=== PATIENT | female | born 1945 | race Caucasian/White ===

== ENCOUNTER → 2018-11-13 | Outpatient (REF) | payer MEDICARE, OTHER ==
[~2018-11-13] MED LIST: BL ASPIRIN325 MG PO; CAL MAG ZINC; FISH OIL600 MG OR; JANTOVEN1 MG PO; JANUMET1 TAB PO; LEVOTHYROXIN50 MCG PO; LIPITOR20 M1 PO; LISINOPRIL2.5 MG PO; METFORMIN500 MG PO; MULTI 501 OR; MULTI PO; PRAVASTATIN SOD20 MG PO; SYNTHROID100 MCG PO; TURMERIC500 M1 PO; ZESTRIL/PRINIV2.5 MG PO; [UNRECOGNIZED DRUG - OTHER]
[2018-11-13 13:36] LABS: HEMATOCRIT 37.3 % (37.0-47.0); HEMOGLOBIN 11.4 g/dl (12.0-16.0); IMMATURE GRANULOCYTES 1.6 % (0.0-5.0); MEAN CELL VOLUME 90.1 fL CALC (80.0-100.0); MEAN CORPUSCULAR HGB 27.5 pG CALC (26.0-32.0); MEAN CORPUSCULAR HGB CONC 30.6 g/L CALC (32.0-36.0); NEUT# 9.35 thou/uL (2.00-7.15); RED BLOOD COUNT 4.14 mill/uL (4.20-5.60); RED CELL DISTRI WIDTH 14.5 % (11.5-15.5)
== END | disposition home or self-care (01) ==
LOC: LAB 12:34
PROVIDERS: ATTEND Nurse Practitioner Family
DX: R63.4 Abnormal weight loss (principal); R05 Cough; R91.8 Other nonspecific abnormal finding of lung field

== ENCOUNTER → 2018-11-20 | Outpatient (REF) | payer MEDICARE, OTHER ==
[2018-11-20 15:36] LABS: GFR > 60 ML/MIN (>=60 (CALC)); GFR FOR AFR.AMER. > 60 ML/MIN (>=60 (CALC))
== END | disposition home or self-care (01) ==
LOC: CT 14:54
PROVIDERS: ATTEND Nurse Practitioner Family
DX: Z01.812 Encounter for preprocedural laboratory examination (principal); R91.8 Other nonspecific abnormal finding of lung field
CPT/HCPCS: Q9967

== ENCOUNTER → 2018-11-22 | Outpatient (REF) | payer MEDICARE, OTHER ==
[~2018-11-22] VITALS: Ht 162.6 cm; Wt 63.0 kg
[2018-11-22 08:58] VITALS: BP 118/75
== END | disposition home or self-care (01) ==
LOC: PO 07:47 → ORM 08:00
PROVIDERS: ATTEND Surgery
DX: Z01.818 Encounter for other preprocedural examination (principal); R19.5 Other fecal abnormalities; E11.9 Type 2 diabetes mellitus without complications; E03.9 Hypothyroidism, unspecified; E78.5 Hyperlipidemia, unspecified; J40 Bronchitis, not specified as acute or chronic; R91.8 Other nonspecific abnormal finding of lung field; Z90.49 Acquired absence of other specified parts of digestive tract; Z98.51 Tubal ligation status; Z72.89 Other problems related to lifestyle; F17.210 Nicotine dependence, cigarettes, uncomplicated; Z97.2 Presence of dental prosthetic device (complete) (partial)

== ENCOUNTER 2018-11-25 15:30 | Emergency (ER) | payer MEDICARE, OTHER ==
[~2018-11-25] VITALS: Ht 162.6 cm; Wt 63.2 kg
[2018-11-25 16:38] LABS: HEMATOCRIT 33.6 % (37.0-47.0); HEMOGLOBIN 10.6 g/dl (12.0-16.0); IMMATURE GRANULOCYTES 0.5 % (0.0-5.0); MEAN CELL VOLUME 88.2 fL CALC (80.0-100.0); MEAN CORPUSCULAR HGB 27.8 pG CALC (26.0-32.0); MEAN CORPUSCULAR HGB CONC 31.5 g/L CALC (32.0-36.0); NEUT# 9.73 thou/uL (2.00-7.15); RED BLOOD COUNT 3.81 mill/uL (4.20-5.60); RED CELL DISTRI WIDTH 14.7 % (11.5-15.5)
[2018-11-25 17:32] LABS: ALBUMIN 3.5 g/dL (3.2-5.0); ALKALINE PHOSPHATASE 91 u/l (38-126); ANION GAP 14 (6-22 (CALC)); BILIRUBIN, TOTAL 0.5 mg/dL (0.0-1.4); BUN 14 mg/dL (8-23); BUN/CREATININE RATIO 17 (12-20 (CALC)); CARBON DIOXIDE 30 mmol/l (22-30); CHLORIDE 99 mmol/l (95-108); CREATININE 0.8 mg/dL (0.5-1.0); GFR > 60 ML/MIN (>=60 (CALC)); GFR FOR AFR.AMER. > 60 ML/MIN (>=60 (CALC)); POTASSIUM 3.7 mmol/l (3.5-5.1); SGOT/AST 27 u/l (9-36); SODIUM 139 mmol/l (137-146); TOTAL PROTEIN 6.9 g/dL (6.3-8.2)
[2018-11-25 17:44] LABS: URINE BLOOD DIPSTICK LARGE (NEGATIVE); URINE COLOR YELLOW; URINE GLUCOSE - DIPSTICK NEGATIVE (NEGATIVE); URINE KETONE TRACE mg/dL (NEGATIVE); URINE LEUK ESTERASE TRACE (NEGATIVE); URINE NITRITE - DIPSTICK NEGATIVE (Negative); URINE PROTEIN - DIPSTICK NEGATIVE (NEG-TRACE); URINE SPECIFIC GRAVITY 1.025; URINE UROBILINOGEN - DIPSTICK 0.2 E.U./dL (0.2)
[2018-11-25 17:44] LABS: MYOGLOBIN 27 ng/mL (0 - 62)
[2018-11-25 17:51] LABS: URINE BILIRUBIN - DIPSTICK SMALL (NEGATIVE)
[2018-11-25 18:06] LABS: URINE RBC TNTC RBC/hpf (0-5); URINE SQUAMOUS EPITHELIAL CELL FEW EPI/hpf (0-FEW)
[2018-11-25 19:07] VITALS: BP 105/57
== END 2018-11-25 19:19 | disposition left against medical advice (07) ==
LOC: ED 15:30
DX: R42 Dizziness and giddiness (principal); R00.2 Palpitations; E11.9 Type 2 diabetes mellitus without complications; F17.210 Nicotine dependence, cigarettes, uncomplicated; R91.8 Other nonspecific abnormal finding of lung field; Z91.19 Patient's noncompliance with other medical treatment and regimen

== ENCOUNTER 2018-11-28 07:18 | Day surgery (SDC) | payer MEDICARE, OTHER ==
[~2018-11-28] VITALS: Ht 162.6 cm; Wt 61.2 kg
[2018-11-28 10:57] VITALS: BP 126/70
== END 2018-11-28 09:55 | disposition home or self-care (01) ==
LOC: ENDO 07:18 → ORM 09:10 → ENDO 09:55 → ORM 10:50
PROVIDERS: ATTEND Surgery
PROC: 0DBK8ZX Excision of Ascending Colon, Via Natural or Artificial Opening Endoscopic, Diagnostic (ICD-10-PCS; principal; 2018-11-28)
DX: D12.2 Benign neoplasm of ascending colon (principal); K57.30 Diverticulosis of large intestine without perforation or abscess without bleeding; Q43.8 Other specified congenital malformations of intestine

== ENCOUNTER 2019-01-09 04:15 | Emergency (ER) | payer MEDICARE, OTHER ==
[~2019-01-09] VITALS: Ht 162.6 cm; Wt 56.3 kg
[2019-01-09 06:30] VITALS: BP 158/72
== END 2019-01-09 06:38 | disposition home or self-care (01) ==
LOC: ED 04:15 → ED-I 06:11 → ED 06:38
DX: K56.41 Fecal impaction (principal); C34.90 Malignant neoplasm of unspecified part of unspecified bronchus or lung; E11.9 Type 2 diabetes mellitus without complications; F17.210 Nicotine dependence, cigarettes, uncomplicated; Z79.899 Other long term (current) drug therapy